=== PATIENT | female | born 1980 | race Caucasian/White ===

== ENCOUNTER 2017-07-17 15:09 | Outpatient (CLI) | payer OTHER ==
[2015-07-30 00:39] VITALS: BP 166/90
[2017-07-17 15:24] LABS: BASOPHILS % 0.6 (0.0-1.5); EOSINOPHILS % 2.9 % (0.0-6.8); MEAN CORPUSCULAR HEMOGLOBIN 32.6 pg (28.0-34.0); MEAN CORPUSCULAR VOLUME 88.3 fl (80.0-100.0); MONOCYTES % 3.4 % (0.0-11.0); NEUTROPHILS # 5.1 # k/uL (1.4-7.7)
--- NOTE | 2017-07-17 18:56 | Diagnostic Imaging Report ---
FRANCO PEREIRA [facility] [id number] [facility] [address] [place] [address]. [id number] Report Submission Date: Jul 17, 2017 4:03:45 PM CDT Patient Study Name: DENI LEAVITT Date: Jul 17, 2017 3:32:53 PM CDT Modality Type: CT\SR Gender: F Description: CT ABD & PELVIS W/ CON : 80 Institution: [facility] Physician: FRANCO PEREIRA CT Abdomen/pelvis with contrast History: RLQ PAIN WITH REBOUND TENDERNESS, EPIGASTRIC PAIN, X2 DAYS Multiple axial images of the abdomen and pelvis are submitted with reconstructions Findings: No comparison studies Motion artifact. Patchy right lower lobe infiltrate. No free intraperitoneal air. No acute osseous pathology The liver, gallbladder, spleen, adrenal glands, pancreas are within normal limits Both kidneys enhance symmetrically, there is no hydronephrosis, urinary bladder is partially distended. The uterine endometrial canal is prominent, bilateral ovarian cysts are present There is retained stool in the terminal ileum. The appendix is distended with fluid, measures 1.5 cm in diameter, no periappendiceal fluid collection or abscess. Fluid-filled small bowel loops are seen in close proximity to the appendix Impression: 1. The appendix is enlarged, distended with fluid and measures 1.5 cm. There is no periappendiceal abscess. Findings are concerning for early appendicitis. No free fluid in the abdomen or pelvis 2. Bilateral ovarian cysts and prominent endometrial canal 3. Fecal stasis in the terminal ileum. Patchy right lower lobe infiltrate. 4. No biliary dilatation. No hydronephrosis bilaterally Electronically signed on Jul 17, 2017 4:03:45 PM CDT by: Maura Easton Obesity. Appendiceal wall thickening and enhancement, minimal periappendiceal fat stranding, findings concerning for appendicitis. Findings were discussed by Dr. Easton with Dr. Pereira on 07/17/17 at approx. 4: 12 pm [employer] Addendum electronically signed by Maura Easton on July 17, 2017 4:13:52 PM CDT MTDD
== END 2017-07-17 15:10 ==
LOC: RAD 15:09
PROVIDERS: ATTEND Physician Assistant
DX: R10.31 Right lower quadrant pain (principal)
CPT/HCPCS: 36415; 74177; 85025; Q9966